=== PATIENT | female | born 1985 | race Caucasian/White ===

== ENCOUNTER 2023-05-09 07:14 | Inpatient (IN) | payer BC ==
[2023-05-08 12:45] VITALS: BMI 26.6
[2023-05-09] MEDS ORDERED: Heparin 5,000 UNITS/ML VIAL ONE (10:10)
[2023-05-09] MEDS ORDERED: Bacitracin Zinc Ointment 30 gm TUBE ONE (11:26)
[2023-05-09] MEDS ORDERED: Methylene Blue 50 MG/10 ML AMPUL ONE (11:26)
[2023-05-09] MEDS ORDERED: Bupivacaine 0.25% HCL 30 ML VIAL ONE ×2 (11:26→12:12)
[2023-05-09] MEDS ORDERED: EPINEPHrine 1 MG/ML AMP ONE ×2 (11:26→12:12)
[2023-05-09] MEDS ORDERED: fentaNYL PF 100 MCG/2 ML SYRINGE ONE (11:32)
[2023-05-09] MEDS ORDERED: SUGAMMADEX SODIUM 200 MG/2 ML VIAL ONE (11:32)
[2023-05-09] MEDS ORDERED: Midazolam HCl 2 mg/2 ml Vial ONE ×2 (11:32→11:36)
[2023-05-09] MEDS ORDERED: CEFAZOLIN 2 GM VIAL ONE (11:36)
[2023-05-09] MEDS ORDERED: Sodium Chloride 0.9% 100 ML ONE (11:36)
[2023-05-09] MEDS ORDERED: Lidocaine 1% PF 5 ML VIAL ONE (11:50)
[2023-05-09] MEDS ORDERED: Rocuronium Bromide 10 MG/ML (10ML VIAL) ONE (11:50)
[2023-05-09] MEDS ORDERED: Dexamethasone 20 MG/5 ML VIAL ONE (11:50)
[2023-05-09] MEDS ORDERED: PROPOFOL 200 MG/20 ML VIAL ONE (11:50)
[2023-05-09] MEDS ORDERED: Ondansetron PF 4 MG/2 ML Vial ONE (11:50)
[2023-05-09] MEDS ORDERED: Isosulfan Blue 50 MG/5 ML VIAL ONE (11:57)
[2023-05-09] MEDS ORDERED: fentaNYL 50 mcg/mL 1 mL Vial ONE (14:44)
[2023-05-09] MEDS ORDERED: Morphine 2 MG/ML VIAL ONE (15:31)
[2023-05-09] MEDS ORDERED: Promethazine HCl 25 MG/ML VIAL ONE (15:32)
== END 2023-05-09 18:30 | disposition home or self-care (01) | DRG 581 ==
LOC: SDC 07:14 → UNDOADMIN 08:03 → SURG A 08:03 → UNDODISIN 18:30
PROVIDERS: ADMIT Plastic Surgery; ATTEND Plastic Surgery
PROC: 0HB6XZZ Excision of Back Skin, External Approach (ICD-10-PCS; principal; 2023-05-09)
PROC: 07B60ZX Excision of Left Axillary Lymphatic, Open Approach, Diagnostic (ICD-10-PCS; 2023-05-09)
DX: C43.59 Malignant melanoma of other part of trunk (principal)
CPT/HCPCS: 78195; 88305; 88307; A9541; C1713; J0171; J1100; J1644; J2250; J2272; J2405; J2550; J2704; J3010; J3490; Q9968; S0020

== ENCOUNTER 2024-02-19 09:14 | Outpatient (CLI) | payer BC | END 2024-02-19 09:15 | disposition home or self-care (01) | LOC: BICMAMMO 09:14 | PROVIDERS: ATTEND Obstetrics & Gynecology | DX: N63.20 Unspecified lump in the left breast, unspecified quadrant (principal) | CPT/HCPCS: 77066; G0279 ==